=== PATIENT | male | born 1985 | race African-American/Black ===

== ENCOUNTER 2016-12-21 03:31 | Inpatient (IN) | payer OTHER ==
--- NOTE | 2016-12-21 03:54 | PDOC ---
History of Present Illness - General History Source: Patient Exam Limitations: No Limitations - History of Present Illness Initial Comments: 12/21/16 04:28 The patient is a 31-year-old male with no significant past medical history, and presents to the emergency department with right knee pain since tonight. The patient reports he was out drinking tonight, and injured his knee when he tripped and fell. He reports he arrived with the help of his friends who supported him as he walked. He reports swelling and deformity of the right knee. The patient denies chest pain, shortness of breath, head trauma, LOC, headache and dizziness. The patient denies fever, chills, nausea, vomit, diarrhea and constipation. The patient denies dysuria, frequency, urgency and hematuria. Allergies: NKDA Past Surgical History: None reported Social History: Occasional alcohol use <Nancy Easton - Last Filed: 12/21/16 05:18> <Chantal Arndt - Last Filed: 12/21/16 06:04> - General Stated Complaint: RIGHT KNEE PAIN Time Seen by Provider: 12/21/16 03:51 Past History <Nancy Easton - Last Filed: 12/21/16 05:18> - Past Medical History Anemia: No Asthma: No Cancer: No Cardiac Disorders: No CVA: No COPD: No CHF: No Dementia: No Diabetes: No GI Disorders: No Disorders: No HTN: No Hypercholesterolemia: No Kidney Stones: No Liver Disease: No Suicide Attempt (Hx): No Seizures: No Thyroid Disease: No - Reproductive History Testicular Surgery: No - Psycho/Social/Smoking Cessation Hx Anxiety: No Suicidal Ideation: No Smoking History: Current every day smoker Have you smoked in the past 12 months: Yes Number of Cigarettes Smoked Daily: 2 Cigars Per Day: 0 'Breaking Loose' booklet given: 05/28/16 Hx Alcohol Use: Yes Drug/Substance Use Hx: Yes (alcohol,nicotine and phencyclidine.) Substance Use Type: Alcohol Hx Substance Use Treatment: No (no previous history of detox/rehab treatment,as per self-report.) <Chantal Arndt - Last Filed: 12/21/16 06:04> - Past Medical History Allergies/Adverse Reactions: Allergies Allergy/AdvReac Type Severity Reaction Status Date / Time No Known Allergies Allergy Verified 12/21/16 03:56 Home Medications: Ambulatory Orders NK [No Known Home Medication] 05/28/16 Review of Systems - Review of Systems Able to Perform ROS?: Yes Comments:: 12/21/16 04:28 CONSTITUTIONAL: Absent: fever, chills, diaphoresis, generalized weakness, malaise, loss of appetite HEENT: Absent: rhinorrhea, nasal congestion, throat pain, throat swelling, difficulty swallowing, mouth swelling, ear pain, eye pain, visual changes CARDIOVASCULAR: Absent: chest pain, syncope, palpitations, irregular heart rate, lightheadedness , peripheral edema RESPIRATORY: Absent: cough, shortness of breath, dyspnea with exertion, orthopnea, wheezing, stridor, hemoptysis GASTROINTESTINAL: Absent: abdominal pain, abdominal distension, nausea, vomiting, diarrhea, constipation, melena, hematochezia GENITOURINARY: Absent: dysuria, frequency, urgency, hesitancy, hematuria, flank pain, genital pain MUSCULOSKELETAL: Present: (+) right knee pain, (+) knee swelling Absent: myalgia SKIN: Absent: rash, itching, pallor HEMATOLOGIC/IMMUNOLOGIC: Absent: easy bleeding, easy bruising, lymphadenopathy, frequent infections ENDOCRINE: Absent: unexplained weight gain, unexplained weight loss, heat intolerance, cold intolerance NEUROLOGIC: Absent: headache, focal weakness or paresthesias, dizziness, unsteady gait, seizure, mental status changes, bladder or bowel incontinence PSYCHIATRIC: Absent: anxiety, depression, suicidal or homicidal ideation, hallucinations. <Nancy Easton - Last Filed: 12/21/16 05:18> *Physical Exam - Vital Signs Last Vital Signs Temp Pulse Resp BP Pulse Ox 72 18 120/70 98 12/21/16 03:56 12/21/16 03:56 12/21/16 03:56 12/21/16 03:56 - Physical Exam Comments: 12/21/16 04:29 GENERAL: (+) Alcohol intoxication. Well developed, well nourished. Awake and alert. No acute distress. HEENT: Normocephalic, atraumatic. PERRLA, EOMI. No conjunctival pallor. Sclera are non- icteric. Moist mucous membranes. Oropharynx is clear. NECK: Supple. Full ROM. No JVD. Carotid pulses 2+ and symmetric, without bruits. No thyromegaly. No lymphadenopathy. CARDIOVASCULAR: Regular rate and rhythm. No murmurs, rubs, or gallops. Distal pulses are 2+ and symmetric. PULMONARY: No evidence of respiratory distress. Lungs clear to auscultation bilaterally. No wheezing, rales or rhonchi. ABDOMINAL: Soft. Non-tender. Non-distended. No rebound or guarding. No organomegaly. Normoactive bowel sounds. MUSCULOSKELETAL (+) High riding patella on the right side. (+) At the location of the right patellar tendon, there is swelling and no patellar tendon structure appreciated. No CVA tenderness. EXTREMITIES: No cyanosis. No clubbing. No calf tenderness. SKIN: Warm and dry. Normal capillary refill. No rashes. No jaundice. NEUROLOGICAL: Alert, awake, appropriate. Cranial nerves 2-12 intact. No deficits to light touch and temperature in face, upper extremities and lower extremities. No motor deficits in the in face, upper extremities. Normoreflexic in the upper extremities. Normal speech. PSYCHIATRIC: Cooperative. Good eye contact. Appropriate mood and affect. <Nancy Easton - Last Filed: 12/21/16 05:18> ED Treatment Course - LABORATORY CBC & Chemistry Diagram: 12/21/16 04:27 12/21/16 04:27 <Nancy Easton - Last Filed: 12/21/16 05:18> - LABORATORY CBC & Chemistry Diagram: 12/21/16 04:27 12/21/16 04:27 <Chantal Arndt - Last Filed: 12/21/16 06:04> Medical Decision Making - Medical Decision Making 12/21/16 04:32 12/21/16 04:31 Patient Name: Emile Jones THIS IS A PRELIMINARY REPORT FROM [facility] BILLING AND CODING SPECIALIST IMAGES: 2 EXAM DATE AND TIME: 2016-12-21 04:00:55.0 EXAM: X-RAY RIGHT KNEE No acute fracture. Elevated patella, question patella yaima versus patellar tendon injury. Minimal soft tissue swelling anterior knee with patellar tendon not well seen. THIS DOCUMENT HAS BEEN ELECTRONICALLY SIGNED ORTHOPEDICS PA is aware of the patient and the fact that we are admitting him to the hospitalist, as patient cannot ambulate with his patellar tendon rupture 12/21/16 04:32 Hospitalists are aware of the patient 12/21/16 06:03 Pt has an alcohol level in the 100s. All other labs are normal. Pre op labs sent. CXR/EKG completed. <Chantal Arndt - Last Filed: 12/21/16 06:04> *DC/Admit/Observation/Transfer - Attestations Scribe Attestion: 12/21/16 04:30 Documentation prepared by Nancy Easton, acting as medical education coordinator for Chantal Arndt MD. <Nancy Easton - Last Filed: 12/21/16 05:18> - Discharge Dispostion Admit: Yes <Chantal Arndt - Last Filed: 12/21/16 06:04> Diagnosis at time of Disposition: Patellar tendon rupture, Inability to walk, Alcohol abuse - Discharge Dispostion Condition at time of disposition: Guarded - Referrals
[2016-12-21 04:38] LABS: BASOPHIL 0.6 % (0-2.0); EOSINOPHIL 3.3 % (0-4.5); MCH 27.5 pg (25.7-33.7); MCHC 32.1 g/dl (32.0-35.9); MEAN CELL VOLUME 85.4 fl (80-96); MEAN PLT VOLUME 8.5 fl (7.5-11.1); NEUTROPHILS 56.7 % (42.8-82.8); PLATELET COUNT 160 K/MM3 (134-434); WHITE BLOOD COUNT 8.1 K/mm3 (4.0-10.0)
[2016-12-21 04:54] LABS: INR 1.09 (0.82-1.09)
--- NOTE | 2016-12-21 04:55 | HP ---
CHIEF COMPLAINT: s/p fall Pain to Right Knee, Unable to ambulate PCP: HISTORY OF PRESENT ILLNESS: This is a 31 y/o male with no significant medical history. Who presents to the emergency department s/p fall to right knee, unable to ambulate x am. Patient reports while out drinking with his friends, he tripped and fell onto his right knee, unable to walk on it. Patient denies dizziness or LOC. Patient denies fever, chills, cough, SOB, CP, AP, N/V/D, constipation, dysuria. ER course was notable for: (1) Xray right knee- No acute fx, elevated patella. ?patella ulta vs patellar tendon (2) ETOH- 137 (3) Recent Travel: None PAST MEDICAL HISTORY: See HPI PAST SURGICAL HISTORY: Social History: Smoking: Cigarettes daily Alcohol: Socially Drugs: Denies Family History: Non- Contributory Allergies No Known Allergies Allergy (Verified 12/21/16 03:56) HOME MEDICATIONS: Home Medications Medication Instructions Recorded NK [No Known Home Medication] 05/28/16 REVIEW OF SYSTEMS CONSTITUTIONAL: Absent: fever, chills, diaphoresis, generalized weakness, malaise, loss of appetite, weight change HEENT: Absent: rhinorrhea, nasal congestion, throat pain, throat swelling, difficulty swallowing, mouth swelling, ear pain, eye pain, visual changes CARDIOVASCULAR: Absent: chest pain, syncope, palpitations, irregular heart rate, lightheadedness , peripheral edema RESPIRATORY: Absent: cough, shortness of breath, dyspnea with exertion, orthopnea, wheezing, stridor, hemoptysis GASTROINTESTINAL: Absent: abdominal pain, abdominal distension, nausea, vomiting, diarrhea, constipation, melena, hematochezia GENITOURINARY: Absent: dysuria, frequency, urgency, hesitancy, hematuria, flank pain, genital pain MUSCULOSKELETAL: right knee pain, joint swelling Absent: myalgia, arthralgia, joint swelling, back pain, neck pain SKIN: Absent: rash, itching, pallor HEMATOLOGIC/IMMUNOLOGIC: Absent: easy bleeding, easy bruising, lymphadenopathy, frequent infections ENDOCRINE: Absent: unexplained weight gain, unexplained weight loss, heat intolerance, cold intolerance NEUROLOGIC: Absent: headache, focal weakness or paresthesias, dizziness, unsteady gait, seizure, mental status changes, bladder or bowel incontinence PSYCHIATRIC: Absent: anxiety, depression, suicidal or homicidal ideation, hallucinations. PHYSICAL EXAMINATION Vital Signs - 24 hr 12/21/16 03:56 Pulse Rate 72 Respiratory 18 Rate Blood Pressure 120/70 O2 Sat by Pulse 98 Oximetry (%) GENERAL: Awake, alert, and fully oriented, in no acute distress. HEAD: Normal with no signs of trauma. EYES: Pupils equal, round and reactive to light, extraocular movements intact, sclera anicteric, conjunctiva clear. No lid lag. EARS, NOSE, THROAT: Ears normal, nares patent, oropharynx clear without exudates. Moist mucous membranes. NECK: Normal range of motion, supple without lymphadenopathy, JVD, or masses. LUNGS: Breath sounds equal, clear to auscultation bilaterally. No wheezes, and no crackles. No accessory muscle use. HEART: Regular rate and rhythm, normal S1 and S2 without murmur, rub or gallop. ABDOMEN: Soft, nontender, not distended, normoactive bowel sounds, no guarding, no rebound, no masses. No hepatomegaly or splenomegaly. MUSCULOSKELETAL: LROM at RLE. R-patellar tenderness/swellingNormal range of motion at RUE, LUE, LLE joints. No bony deformities. No CVA tenderness. UPPER EXTREMITIES: 2+ pulses, warm, well-perfused. No cyanosis. No clubbing. No peripheral edema. LOWER EXTREMITIES: 2+ pulses, warm, well-perfused. No calf tenderness. No peripheral edema. NEUROLOGICAL: Cranial nerves II-XII intact. Normal speech. Unable to ambulate. PSYCHIATRIC: Cooperative. Good eye contact. Appropriate mood and affect. SKIN: Superficial abrasion to right elbow. Warm, dry, normal turgor, no rashes noted. normal capillary refill. Laboratory Results - last 24 hr 3 12/21/16 12/21/16 12/21/16 04:27 04:27 04:27 WBC 8.1 RBC 5.12 Hgb 14.1 Hct 43.8 MCV 85.4 MCHC 32.1 RDW 14.0 Plt Count 160 MPV 8.5 D Neutrophils % 56.7 Lymphocytes % 28.2 Monocytes % 11.2 H Eosinophils % 3.3 Basophils % 0.6 INR Sodium 142 Potassium 3.5 Chloride 104 Carbon Dioxide 27 Anion Gap 11 BUN 11 Creatinine 1.0 Creat Clearance w eGFR > 60 Random Glucose 104 Calcium 8.6 Total Bilirubin 0.5 D AST 31 D ALT 34 Alkaline Phosphatase 81 Total Protein 7.3 Albumin 4.1 Alcohol, Quantitative Blood Type O POSITIVE Antibody Screen Negative 3 12/21/16 12/21/16 04:27 04:27 WBC RBC Hgb Hct MCV MCHC RDW Plt Count MPV Neutrophils % Lymphocytes % Monocytes % Eosinophils % Basophils % INR 1.09 Sodium Potassium Chloride Carbon Dioxide Anion Gap BUN Creatinine Creat Clearance w eGFR Random Glucose Calcium Total Bilirubin AST ALT Alkaline Phosphatase Total Protein Albumin Alcohol, Quantitative 137.3 H* Blood Type Antibody Screen Radiology Report 12/21/16 04:32 12/21/16 04:31 Patient Name: Emile Jones THIS IS A PRELIMINARY REPORT FROM [facility] TE[facility] IMAGES: 2 EXAM DATE AND TIME: 2016-12-21 04:00:55.0 EXAM: X-RAY RIGHT KNEE No acute fracture. Elevated patella, question patella yaima versus patellar tendon injury. Minimal soft tissue swelling anterior knee with patellar tendon not well seen. THIS DOCUMENT HAS BEEN ELECTRONICALLY SIGNED ASSESSMENT/PLAN: This is a 31 y/o male with no past medical history. Admitted for Patellar Tendon Rupture, Non-ambulatory for further evaluation of their emergent condition Plan 1. Ortho: Patellar Tendon Rupture - Likely secondary to fall - Xray right knee- see above - Appreciate Ortho Consult- notified by ED physician - Knee Immbolizer - Elevate extremity - Percocet prn - Ice Pack - Pulse checks - PT 2. ETOH Level Elevated - IVF - Counseled patient on Alcohol Cessation 3. Right Elbow Abrasion - Tetanus Vaccine - Wound care- clean, bacitracin, dressing 4. FEN - D5 1/2NS@ 75cc/hr - Monitor Lytes - NPO 5. DVT Prophylaxis - SCDs Code Status: Full Code Problem List - Problem (1) Patellar tendon rupture Code(s): S86.819A - STRAIN OF MUSC/TEND AT LOWER LEG LEVEL, UNSP LEG, INIT (2) Inability to walk Code(s): R26.2 - DIFFICULTY IN WALKING, NOT ELSEWHERE CLASSIFIED (3) Elevated ETOH level Code(s): R78.0 - FINDING OF ALCOHOL IN BLOOD (4) Nicotine dependence Code(s): F17.200 - NICOTINE DEPENDENCE, UNSPECIFIED, UNCOMPLICATED Qualifiers : (5) DVT prophylaxis Code(s): RKN0506 - Visit type - Emergency Visit Emergency Visit: Yes ED Registration Date: 12/21/16 Care time: The patient presented to the Emergency Department on the above date and was hospitalized for further evaluation of their emergent condition. - New Patient This patient is new to me today: Yes Date on this admission: 12/21/16 - Critical Care Critical Care patient: No
[2016-12-21 05:00] LABS: ALBUMIN 4.1 g/dl (3.4-5.0); ALK PHOS 81 U/L (45-117); ANION GAP 11 (8-16); BILIRUBIN,TOTAL 0.5 mg/dL (0.2-1.0); CALCIUM 8.6 mg/dL (8.5-10.1); CO2 27 mmol/L (21-32); COCKROFT - GAULT 109.87; GLUCOSE,RANDOM 104 mg/dL (74-106); SGOT/AST 31 U/L (15-37); SGPT/ALT 34 U/L (12-78); TOT PROT 7.3 g/dl (6.4-8.2)
[2016-12-21] MEDS ORDERED: DEXTROSE 5%-0.45% SALINE 1,000 ML IV SCH ×2 (05:00→05:11)
[2016-12-21] MEDS ORDERED: TETANUS AND DIPHTHERIA TOXOID 0.5 ML DISP.SYRIN IM ONE (06:20)
[2016-12-21] MEDS ORDERED: FOLIC ACID INJECTION - 1 MG, THIAMINE HCL 100 MG, MULTIVIT INJECTION ADULT 10 ML in SOD... IVPB ONE (07:44)
[2016-12-21] MEDS ORDERED: ACETAMINOPHEN 325 MG TABLET (FP) PO PRN (07:44)
[2016-12-21 11:27] VITALS: BMI 19.5
--- NOTE | 2016-12-21 13:27 | CONSULT ---
Consult Reason for Consultation:: Right knee - History of Present Illness Chief Complaint: Right knee pain History of Present Illness: 31y/o male complains of right knee pain since early this morning. He was drinking last night and fell and since then has had pain. He has been unable to walk since then. He denies any numbness or tingling in the extremity. The pain is worse with movement and better with rest. - History Source History Provided By: Patient, Medical Record Limitations to Obtaining History: No Limitations - Alcohol/Substance Use Hx Alcohol Use: Yes - Smoking History Smoking history: Current every day smoker Have you smoked in the past 12 months: Yes Aproximately how many cigarettes per day: 2 Home Medications - Allergies Allergies/Adverse Reactions: Allergies Allergy/AdvReac Type Severity Reaction Status Date / Time No Known Allergies Allergy Verified 12/21/16 03:56 - Home Medications Home Medications: Ambulatory Orders NK [No Known Home Medication] 05/28/16 Review of Systems - Review of Systems Constitutional: reports: No Symptoms Eyes: reports: No Symptoms HENT: reports: No Symptoms Neck: reports: No Symptoms Cardiovascular: reports: No Symptoms Respiratory: reports: No Symptoms Gastrointestinal: reports: No Symptoms Genitourinary: reports: No Symptoms Breasts: reports: No Symptoms Reported Musculoskeletal: reports: Joint Pain, Joint Swelling Integumentary: reports: No Symptoms Neurological: reports: No Symptoms Endocrine: reports: No Symptoms Hematology/Lymphatic: reports: No Symptoms Psychiatric: reports: No Symptoms Physical Exam Vital Signs: Vital Signs Temperature 98.2 F 12/21/16 10:59 Pulse Rate 71 12/21/16 10:59 Respiratory Rate 18 12/21/16 10:59 Blood Pressure 127/71 12/21/16 08:46 O2 Sat by Pulse Oximetry (%) 98 12/21/16 03:56 Constitutional: Yes: Well Nourished, No Distress HENT: Yes: Atraumatic, Normocephalic Extremities: Yes: Other (Right knee: Moderate edema of the knee. Patella is high riding. Diffuse tenderness over the patella tendon. He is unable to activly extend the knee. Calf soft, NT. Compartments soft. NVID.) Imaging - Results X-ray: Report Reviewed, Image Reviewed (High riding patella) Assessment/Plan #1 Right knee patella tendon rupture -Knee immobilizer, WBAT with crutches -Pain control -Follow up with Dr. Wilder this week. -May be D/C when ready from orthopedic standpoint.
[2016-12-21 15:11] VITALS: BP 118/65; PULSE 76; TEMP 98.6
[2016-12-21] MEDS ORDERED: SODIUM CHLORIDE 1,000 ML IV SCH (15:45)
--- NOTE | 2016-12-22 00:05 | EKG ---
Test Reason : Blood Pressure : / mmHG Vent. Rate : 068 BPM Atrial Rate : 068 BPM P-R Int : 150 ms QRS Dur : 090 ms QT Int : 402 ms P-R-T Axes : 081 090 067 degrees QTc Int : 427 ms NORMAL SINUS RHYTHM RIGHTWARD AXIS PULMONARY DISEASE PATTERN ABNORMAL ECG NO PREVIOUS ECGS AVAILABLE Confirmed by ELAYNE TREVIÑO MD ([id number]) on 12/22/2016 12:05:18 AM Referred By: Confirmed By:ELAYNE TREVIÑO MD
[2016-12-22] MEDS ORDERED: MULTIVITAMINS (DAILY MVI) TABLET (FP) PO SCH (10:00)
[2016-12-22] MEDS ORDERED: FOLIC ACID 1 MG TABLET (FP) PO SCH (10:00)
[2016-12-22] MEDS ORDERED: THIAMINE HCL 100 MG TABLET (FP) PO SCH (10:00)
--- NOTE | 2016-12-23 08:53 | DS ---
Physical Exam: SUBJECTIVE: Patient seen and examined in the AM the day he left AMA. 12/21 OBJECTIVE: PE Neuro: arousable, nad, oriented Pulm: clear anteriorly CV: s1 s2 rrr no mrg Abd: s nt nd + bs Ext: R knee swelling, warm, tender to palpation + brace HOSPITAL COURSE: Date of Admission:12/21/16 Date of Discharge: 12/23/16 Minutes to complete discharge: 35 Discharge Summary Reason For Visit: PATELLAR TENDON RUPTURE Hospital Course: Initial Hospital Course: 31 y/o male with no significant medical history. presented to the emergency department s/p fall to right knee, unable to ambulate x am. Patient reported while out drinking with his friends, he tripped and fell onto his right knee, unable to walk on it. Subsequent Hospital Course: PT seen by ortho, he is WBAT with crutches R knee X-ray: High riding patella 1. Right knee patella tendon rupture -Knee immobilizer, WBAT with crutches -Pain control -Follow up with Dr. Wilder this week. -May be D/C when ready from orthopedic standpoint. Condition: Guarded - Instructions Referrals: Jeanmarie Edge MD [Staff Physician] - Disposition: AGAINST MEDICAL ADVICE - Home Medications Comprehensive Discharge Medication List: Ambulatory Orders NK [No Known Home Medication] 05/28/16
== END 2016-12-21 18:27 | disposition left against medical advice (07) | DRG 351 ==
LOC: JER 03:31 → JERBED 04:40 → J5S 07:53
PROVIDERS: ADMIT Internal Medicine; ATTEND Nurse Practitioner Acute Care
DX: S76.111A Strain of right quadriceps muscle, fascia and tendon, initial encounter (principal); S50.311A Abrasion of right elbow, initial encounter; F10.10 Alcohol abuse, uncomplicated; F17.210 Nicotine dependence, cigarettes, uncomplicated; W01.0XXA Fall on same level from slipping, tripping and stumbling without subsequent striking against object, initial encounter; Y93.89 Activity, other specified; Y92.89 Other specified places as the place of occurrence of the external cause; Y99.8 Other external cause status
CPT/HCPCS: 36415; 71010-TC; 73560-TC-RT; 80053; 80307; 85025; 85610; 86850; 86900; 86901; 93005; 93010; 99285-25

== ENCOUNTER 2018-07-01 22:13 | Emergency (ER) | payer OTHER ==
[2018-07-01 22:39] VITALS: BP 120/78; PULSE 74; TEMP 98.5; BMI 28.8
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
[2018-07-02] MEDS ORDERED: KETOROLAC TROMETHAMINE 60 MG/2 ML VIAL IM ONE (00:29)
[2018-07-02] MEDS ORDERED: KETOROLAC TROMETHAMINE 60 MG/2 ML VIAL ONE (00:31)
== END 2018-07-02 00:42 | disposition home or self-care (01) ==
LOC: FER 22:13 → SUPCPDRO 22:13 → FER 07-02 00:42
PROC: 3E0233Z Introduction of Anti-inflammatory into Muscle, Percutaneous Approach (ICD-10-PCS; principal; 2018-07-01)
DX: S16.1XXA Strain of muscle, fascia and tendon at neck level, initial encounter (principal); V43.52XA Car driver injured in collision with other type car in traffic accident, initial encounter; Y93.89 Activity, other specified; Y92.410 Unspecified street and highway as the place of occurrence of the external cause; F17.210 Nicotine dependence, cigarettes, uncomplicated
CPT/HCPCS: 72050-TC-FY; 99281-25

== ENCOUNTER 2019-07-27 08:14 | Inpatient (IN) | payer OTHER ==
[2019-07-27 08:46] VITALS: BMI 22.1
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
[2019-07-27] MEDS ORDERED: MENTHOL/PHENOL 1 EACH UD MM PRN (09:05)
[2019-07-27] MEDS ORDERED: P-EPHED 60MG/TRIPROLIDI 2.5MG TABLET PO PRN (09:05)
[2019-07-27] MEDS ORDERED: LOPERAMIDE HCL 2 MG CAPSULE PO PRN (09:05)
[2019-07-27] MEDS ORDERED: MAGNESIUM HYDROX 2400MG/30ML ORAL SUSPENSION 30 ML CUP PO PRN (09:05)
[2019-07-27] MEDS ORDERED: MAGNESIUM CITRATE 300 ML BOTTLE PO PRN (09:05)
[2019-07-27] MEDS ORDERED: ACETAMINOPHEN 325 MG TABLET (FP) PO PRN (09:05)
[2019-07-27] MEDS ORDERED: MAG HYDROX/AL HYDROX/SIMETH 30 ML UNIT-DOSE CUP PO PRN (09:05)
[2019-07-27] MEDS ORDERED: IBUPROFEN 400 MG TABLET (FP) PO PRN (09:05)
[2019-07-27] MEDS ORDERED: guaiFENesin 200 MG/10 ML 10 ML UNIT-DOSE CUPS PO PRN (09:05)
[2019-07-27] MEDS: PRENATAL VITAMINS W/ FOLIC ACID TABLET (FP) PO SCH (10:26)
[2019-07-27] MEDS: NICOTINE 14 MG/24 HOURS TOPICAL PATCH TD SCH (10:27)
--- NOTE | 2019-07-27 14:30 | PN ---
S Progress Note Note: Pt is a 34 y/o male with a hx of alcohol and THC dependence admitted today to rehab from [facility]. denies PMHx and Psych Hx. PSHx:Mitchell Scar on right knee due to knee replacement. 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 Vital Signs - 24 hr 07/27/19 08:43 Temperature 98 F Pulse Rate 85 Respiratory 18 Rate Blood Pressure 113/56 L Labs pending A/P New patient to rehab Maintain safety
[2019-07-27 17:50] LABS: HEMATOCRIT 40.8 % (35.4-49); HEMOGLOBIN 13.2 GM/dL (11.7-16.9); MCHC 32.4 g/dl (32.0-35.9); MEAN CELL VOLUME 89.5 fl (80-96); PLATELET COUNT 172 K/MM3 (134-434); RBC 4.56 M/mm3 (4.00-5.60); RDW 15.8 % (11.9-15.9); WHITE BLOOD COUNT 7.3 K/mm3 (4.0-10.0)
[2019-07-27 17:58] LABS: ALBUMIN 3.8 g/dl (3.4-5.0); BILIRUBIN,TOTAL 0.5 mg/dL (0.2-1); CALCIUM 8.9 mg/dL (8.5-10.1); CREATININE 1.3 mg/dL (0.55-1.3); POTASSIUM 4.3 mmol/L (3.5-5.1)
[2019-07-27] MEDS ORDERED: TUBERCULIN PPD 5 TU/0.1ML VIAL ID ONE (21:08)
[2019-07-27] MEDS: THIAMINE HCL 100 MG TABLET (FP) PO SCH (21:09)
[2019-07-28] MEDS: PRENATAL VITAMINS W/ FOLIC ACID TABLET (FP) PO SCH (10:05)
[2019-07-28] MEDS: NICOTINE 14 MG/24 HOURS TOPICAL PATCH TD SCH (10:05)
[2019-07-28] MEDS ORDERED: FLU VACCINE QUAD 60 MCG/0.5 ML (MDV 19-20) IM ONE (12:00)
[2019-07-28] MEDS: THIAMINE HCL 100 MG TABLET (FP) PO SCH (21:25)
[2019-07-28] MEDS: MELATONIN 5 MG TABLETS PO PRN (21:26)
[2019-07-29] MEDS: NICOTINE 14 MG/24 HOURS TOPICAL PATCH TD SCH (10:53)
[2019-07-29] MEDS: PRENATAL VITAMINS W/ FOLIC ACID TABLET (FP) PO SCH (10:53)
[2019-07-29] MEDS: THIAMINE HCL 100 MG TABLET (FP) PO SCH (21:13)
[2019-07-29] MEDS: MELATONIN 5 MG TABLETS PO PRN (21:13)
[2019-07-30] MEDS: PRENATAL VITAMINS W/ FOLIC ACID TABLET (FP) PO SCH (10:51)
[2019-07-30] MEDS: NICOTINE 14 MG/24 HOURS TOPICAL PATCH TD SCH (10:51)
[2019-07-30 11:17] LABS: URINE APPEARANCE CLEAR; URINE BILIRUBIN NEGATIVE (NEGATIVE); URINE COLOR YELLOW; URINE GLUCOSE (UA) NEGATIVE (NEGATIVE); URINE KETONE NEGATIVE (NEGATIVE); URINE LEUK ESTERASE NEGATIVE (NEGATIVE); URINE NITRITE NEGATIVE (NEGATIVE); URINE PROTEIN NEGATIVE (NEGATIVE); URINE UROBILINOGEN 0.2 mg/dL (0.2-1.0)
[2019-07-30] MEDS: THIAMINE HCL 100 MG TABLET (FP) PO SCH (21:06)
[2019-07-30] MEDS: MELATONIN 5 MG TABLETS PO PRN (21:06)
[2019-07-31] MEDS: NICOTINE 14 MG/24 HOURS TOPICAL PATCH TD SCH (10:13)
[2019-07-31] MEDS: PRENATAL VITAMINS W/ FOLIC ACID TABLET (FP) PO SCH (10:13)
[2019-07-31] MEDS: MELATONIN 5 MG TABLETS PO PRN (21:04)
[2019-07-31] MEDS: THIAMINE HCL 100 MG TABLET (FP) PO SCH (21:04)
[2019-08-01] MEDS: PRENATAL VITAMINS W/ FOLIC ACID TABLET (FP) PO SCH (10:38)
[2019-08-01] MEDS: NICOTINE 14 MG/24 HOURS TOPICAL PATCH TD SCH (10:39)
[2019-08-01] MEDS: MELATONIN 5 MG TABLETS PO PRN (21:05)
[2019-08-01] MEDS: THIAMINE HCL 100 MG TABLET (FP) PO SCH (21:05)
[2019-08-02 07:26] VITALS: BP 98/36; PULSE 84; TEMP 97.9
[2019-08-02] MEDS: NICOTINE 14 MG/24 HOURS TOPICAL PATCH TD SCH (10:53)
[2019-08-02] MEDS: PRENATAL VITAMINS W/ FOLIC ACID TABLET (FP) PO SCH (10:53)
--- NOTE | 2019-08-02 16:55 | DS ---
[facility] Rehab Discharge Summary - [facility] Rehab Discharge Summary Admission Date: 07/27/19 Discharge Date: 08/02/19 (Left AMA) - History Present History: Alcohol dependence, Cannabis dependence Additional Comments: Pt left AMA. Pt did not complete the rehab protocol. Pt states, "i have to go home and take care of my 5yr old and 6month old kids". Attempt to let pt stay and complete the rehab failed. Pt states he has no PCP but goes to [facility] for medical care in emergency. Pt states he lives in [place] and will enrol in [facility] for Primary care after discharge from rehab. Pt is also encouraged to follow-up with an outpatient CD program and he verbalized he has been advised to follow-up with [facility]. Pt verbalized understanding of the information given. Pt is alert and oriented x3 and in no acute respiratory distress. Pertinent Past History: H/o alcohol and cannabis use disorder. - Discharge Physical Exam Vital Signs: Vital Signs Temperature 97.9 F 08/02/19 07:25 Pulse Rate 84 08/02/19 07:25 Respiratory Rate 18 08/02/19 07:25 Blood Pressure 98/36 L 08/02/19 07:25 O2 Sat by Pulse Oximetry (%) Laboratory Last Values WBC 7.3 K/mm3 (4.0-10.0) 07/27/19 09:25 RBC 4.56 M/mm3 (4.00-5.60) 07/27/19 09:25 Hgb 13.2 GM/dL (11.7-16.9) 07/27/19 09:25 Hct 40.8 % (35.4-49) 07/27/19 09:25 MCV 89.5 fl (80-96) 07/27/19 09:25 MCH 29.0 pg (25.7-33.7) 07/27/19 09:25 MCHC 32.4 g/dl (32.0-35.9) 07/27/19 09:25 RDW 15.8 % (11.9-15.9) D 07/27/19 09:25 Plt Count 172 K/MM3 (134-434) 07/27/19 09:25 MPV 9.0 fl (7.5-11.1) 07/27/19 09:25 Sodium 144 mmol/L (136-145) 07/27/19 09:25 Potassium 4.3 mmol/L (3.5-5.1) 07/27/19 09:25 Chloride 108 mmol/L (98-107) H 07/27/19 09:25 Carbon Dioxide 30 mmol/L (21-32) 07/27/19 09:25 Anion Gap 5 MMOL/L (8-16) L 07/27/19 09:25 BUN 14.0 mg/dL (7-18) 07/27/19 09:25 Creatinine 1.3 mg/dL (0.55-1.3) 07/27/19 09:25 Est GFR (CKD-EPI)AfAm 82.51 07/27/19 09:25 Est GFR (CKD-EPI)NonAf 71.19 07/27/19 09:25 Random Glucose 78 mg/dL (74-106) 07/27/19 09:25 Calcium 8.9 mg/dL (8.5-10.1) 07/27/19 09:25 Total Bilirubin 0.5 mg/dL (0.2-1) 07/27/19 09:25 AST 40 U/L (15-37) H 07/27/19 09:25 ALT 48 U/L (13-61) 07/27/19 09:25 Alkaline Phosphatase 87 U/L (45-117) 07/27/19 09:25 Total Protein 7.0 g/dl (6.4-8.2) 07/27/19 09:25 Albumin 3.8 g/dl (3.4-5.0) 07/27/19 09:25 Urine Color Yellow 07/30/19 08:40 Urine Appearance Clear 07/30/19 08:40 Urine pH 5.0 (5.0-8.0) 07/30/19 08:40 Ur Specific [place] 1.023 (1.010-1.035) 07/30/19 08:40 Urine Protein Negative (NEGATIVE) 07/30/19 08:40 Urine Glucose (UA) Negative (NEGATIVE) 07/30/19 08:40 Urine Ketones Negative (NEGATIVE) 07/30/19 08:40 Urine Blood Negative (NEGATIVE) 07/30/19 08:40 Urine Nitrite Negative (NEGATIVE) 07/30/19 08:40 Urine Bilirubin Negative (NEGATIVE) 07/30/19 08:40 Urine Urobilinogen 0.2 mg/dL (0.2-1.0) 07/30/19 08:40 Ur Leukocyte Esterase Negative (NEGATIVE) 07/30/19 08:40 RPR Titer Nonreactive (NONREACTIVE) 07/27/19 09:50 HIV 1&2 Antibody Screen Negative 07/27/19 09:25 HIV P24 Antigen Negative 07/27/19 09:25 Vital Signs (72 hours) 07/31/19 07/31/19 07/31/19 00:30 03:30 06:53 Temperature 97.8 F Pulse Rate 68 Respiratory 18 18 18 Rate Blood Pressure 127/65 08/01/19 08/01/19 08/01/19 00:30 03:30 07:06 Temperature Pulse Rate Respiratory 18 18 18 Rate Blood Pressure 08/02/19 08/02/19 08/02/19 00:30 03:30 07:25 Temperature 97.9 F Pulse Rate 84 Respiratory 18 18 18 Rate Blood Pressure 98/36 L Labs noted. Pertinent Admission Physical Exam Findings: stable, came in for admission to rehab. - Treatment Discharge Condition: Discharge condition good - Medication Discharge Medications: Ambulatory Orders NK [No Known Home Medication] 05/28/16 - Medication-Assisted Treatment (MAT) Medication-Assisted Treatment (MAT): No MAT Follow-up Referral: [facility]. - Discharge Instructions Diet, activity, other medical instructions: Diet: Regular diet Activity: Activity as tolerated. Other medical instructions: - Diagnosis (1) Alcohol abuse Status: Acute (2) Cannabis use disorder, mild, in controlled environment Status: Acute (3) Nicotine dependence Status: Chronic Qualifiers: (4) Patellar tendon rupture Status: Acute (5) Low back pain, non-specific Status: Chronic - AMA Did Patient Leave Against Medical Advice: Yes
== END 2019-08-02 17:25 | disposition left against medical advice (07) | DRG 770 ==
LOC: YASAS 08:14 → Y5N 09:31
PROVIDERS: ADMIT Neuromusculoskeletal Medicine & OMM; ATTEND Neuromusculoskeletal Medicine & OMM
PROC: HZ42ZZZ Group Counseling for Substance Abuse Treatment, Cognitive-Behavioral (ICD-10-PCS; principal; 2019-07-27)
DX: F10.20 Alcohol dependence, uncomplicated (principal); F12.20 Cannabis dependence, uncomplicated; F17.210 Nicotine dependence, cigarettes, uncomplicated; M54.5 Low back pain; G89.29 Other chronic pain; Z96.651 Presence of right artificial knee joint
CPT/HCPCS: 36415; 80053; 81003; 85027; 86593; 87389; G0008; Q2036

== ENCOUNTER 2021-12-12 17:15 | Emergency (ER) | payer OTHER ==
[2021-12-12 17:27] VITALS: BP 109/61; PULSE 82; TEMP 98.2; BMI 21.5
[2021-12-12] MEDS ORDERED: DIPHTH,PERTUSS(ACELL),TET 0.5 ML DISP.SYRIN IM ONE ×2 (17:54→17:57)
[2021-12-12] MEDS ORDERED: IBUPROFEN 600 MG TABLET (FP) PO ONE ×2 (18:19)
== END 2021-12-12 18:24 | disposition home or self-care (01) ==
LOC: JERFT 17:15
PROC: 3E0234Z Introduction of Serum, Toxoid and Vaccine into Muscle, Percutaneous Approach (ICD-10-PCS; principal; 2021-12-12)
DX: S61.215A Laceration without foreign body of left ring finger without damage to nail, initial encounter (principal); W26.0XXA Contact with knife, initial encounter
CPT/HCPCS: 90471; 90715; 99283-25; 99284-25